=== PATIENT | female | born 2000 | race Caucasian/White ===

== ENCOUNTER 2019-02-26 09:28 | Emergency (ER) | payer SELFPAY ==
[2019-02-26] MEDS: KETOROLAC 60 MG INJ IM (10:05)
== END 2019-02-26 10:49 | disposition home or self-care (01) ==
LOC: FTE 10:49
DX: R07.81 Pleurodynia (principal)
CPT/HCPCS: 71045; 81025; 99283-25

== ENCOUNTER 2019-04-25 17:15 | Emergency (ER) | payer MEDICAID, OTHER ==
[2019-04-25 19:00] LABS: ADD UMIC YES; UR ASCORBIC ACID NEGATIVE (NEGATIVE); UR BILIRUBIN (Dip) NEGATIVE (NEGATIVE); UR BLOOD (Dip) NEGATIVE (NEGATIVE); UR CLARITY SLIGHTLY CLOUDY (CLEAR); UR COLOR AMBER (YELLOW); UR GLUCOSE (Dip) NEGATIVE (NEGATIVE); UR KETONES (Dip) NEGATIVE (NEGATIVE); UR LEUKOCYTE ESTERASE (Dip) NEGATIVE Leu/ul (NEGATIVE); UR NITRITE (Dip) NEGATIVE (NEGATIVE); UR RBC 3 /HPF (0-5); UR SPECIFIC GRAVITY (Dip) 1.024 (1.003-1.030); UR TOTAL PROTEIN (Dip) 1+ mg/dl (NEGATIVE); UR UROBILINOGEN (Dip) 2+ mg/dL (NEGATIVE); UR WBC 6 /HPF (0-5)
[2019-04-25 19:01] LABS: UR MUCUS FEW /HPF (NONE SEEN); UR SQUAMOUS EPITHELIAL CELL MODERATE /HPF (FEW)
[2019-04-25 19:11] LABS: ALANINE AMINOTRANSFERASE 13 IU/L (13-69); ALBUMIN 4.3 g/dl (3.3-4.9); ALBUMIN/GLOBULIN RATIO 0.71; ALKALINE PHOSPHATASE 61 IU/L (42-121); ANION GAP 8 (5-13); ASPARTATE AMINO TRANSFERASE 35 IU/L (15-46); BILIRUBIN,INDIRECT 0.7 mg/dl (0-1.1); BILIRUBIN,TOTAL 0.7 mg/dl (0.2-1.3); BLOOD UREA NITROGEN 10 mg/dl (7-20); C-REACTIVE PROTEIN 1.7 mg/dl (0.0-0.9); CALCIUM 9.1 mg/dl (8.4-10.2); CARBON DIOXIDE 25 mmol/L (21-31); CHLORIDE 106 mmol/L (97-110); CREATINE KINASE 97 IU/L (23-200); CREATININE 0.62 mg/dl (0.44-1.00); Estimated GFR > 60 mL/min (>60); GLUCOSE 87 mg/dl (70-220); POTASSIUM 4.2 mmol/L (3.5-5.1); SODIUM 139 mmol/L (135-144); TOTAL PROTEIN 10.3 g/dl (6.1-8.1)
[2019-04-25 19:41] LABS: ERYTHROCYTE SEDIMENTATION RATE 27 mm/Hr (0-20)
[2019-04-25 19:51] LABS: ABNORMAL IP MESSAGE 1; MEAN CORPUSCULAR HEMOGLOBIN 33.7 pg (29.0-33.0); MEAN CORPUSCULAR HGB CONC 33.7 g/dl (32.0-37.0); RED BLOOD COUNT 2.08 10^6/ul (4.20-5.40); RED CELL DISTRIBUTION WIDTH 25.2 % (11.5-14.5)
[2019-04-25 19:52] LABS: ADD MAN DIFF? YES; POSITIVE DIFF @See below
[2019-04-25 19:54] LABS: WHITE BLOOD COUNT 5.2 10^3/ul (4.8-10.8)
[2019-04-25 19:54] LABS: PLATELET COUNT 364 10^3/UL (140-415)
[2019-04-25 19:55] LABS: MEAN PLATELET VOLUME 8.9 fl (7.4-10.4)
[2019-04-25 19:56] LABS: HEMATOCRIT 20.8 % (37.0-47.0)
[2019-04-25 20:11] LABS: ANISOCYTOSIS 1+ (0-0); BAND NEUTROPHILS #M 0.4 10^3/ul (0.0-0.6); BAND NEUTROPHILS % (M) 9 % (0-10); EOSINOPHILS % (M) 9 % (0-7); LYMPHOCYTES #M 1.4 10^3/ul (0.8-2.9); LYMPHOCYTES % (M) 28 % (18-55); MONOCYTE #M 0.2 10^3/ul (0.3-0.9); MONOCYTES % (M) 4 % (0-13); PLATELET ESTIMATE NORMAL; POLYCHROMASIA 1+ (0-0); SEG NEUT #M 2.6 10^3/ul (1.6-7.5); SEGMENTED NEUTROPHILS (M) % 50 % (30-74); SMUDGE%M 8 % (0-0)
[2019-04-25] MEDS: LIDOCAINE 1% (MPF) 5 ML VIAL INFIL (20:13)
[2019-04-25] MEDS: AZITHROMYCIN 500 MG TAB PO (20:13)
[2019-04-25] MEDS: CEFTRIAXONE 1 GM INJ IM (20:14)
[2019-04-25] MEDS: ACETAMINOPHEN 500 MG TAB PO (20:28)
== END 2019-04-25 20:35 | disposition home or self-care (01) ==
LOC: FTE 17:15
DX: J18.9 Pneumonia, unspecified organism (principal)
CPT/HCPCS: 36415; 71045; 80053; 81001; 82550; 84703; 85025; 85651; 86140; 96372; 99284-25